=== PATIENT | female | born 1960 | race Caucasian/White ===

== ENCOUNTER 2024-11-21 23:59 | Inpatient (IN) | payer OTHER, SELFPAY ==
[2024-11-21 16:54] VITALS: BP 114/65
[2024-11-21 17:27] LABS: Urine Albumin Trace (Neg - Trace); Urine Bilirubin Negative (Negative); Urine Character Clear (Clear); Urine Color Yellow; Urine Glucose 3+ (Negative); Urine Ketone Negative (Negative); Urine Leukocyte 1+ (Negative); Urine Nitrite Negative (Negative); Urine Occult Blood 3+ (Negative); Urine Specific Gravity 1.015 (<1.030); Urine Urobilinogen Negative (Neg - 1+)
[2024-11-21 17:30] LABS: % Basophils 0.5 % (0-2); % Eosinophils 0.2 % (0-6); % Immature Granulocytes 0.2 % (0-0.5); % Lymphocytes 29.7 % (20.5-51.1); % Monocytes 7.5 % (1.7-9.3); % Neutrophils 61.9 % (42.2-75.2); Absolute Basophils 0.1 10^3/uL (0-0.2); Absolute Lymphocytes 3.9 10^3/uL (1.2-3.4); Absolute Neutrophils 8.1 10^3/uL (1.4-6.5); Hemoglobin 12.2 g/dL (12.0-16.0); Mean Corpuscular Hgb 29.4 pg (27.0-31.0); Mean Corpuscular Volume 89.2 fL (81.0-99.0); Mean Platelet Volume 9.4 fL (7.4-10.4); Nucleated Red Blood Cells % 0 %; Platelet Count 298 10^3/uL (130-400); Red Blood Cell Count 4.15 10^6/uL (4.20-5.40)
[2024-11-21 17:45] LABS: ALT (SGPT) 25 U/L (0-35); AST (SGOT) 22 U/L (14-36); Albumin 4.3 g/dl (3.5-5.0); Alkaline Phosphatase 66 U/L (38-126); Blood Urea Nitrogen 31 mg/dl (7-17); Calcium 9.4 mg/dl (8.4-10.2); Carbon Dioxide 23 mmol/L (22-30); Chloride 104 mmol/L (98-107); Glucose 122 mg/dl (70-99); Potassium 4.5 mmol/L (3.5-5.1); Sodium 136 mmol/L (135-145); Total Bilirubin 0.6 mg/dl (0.2-1.3); Total Protein 7.2 g/dl (6.3-8.2); eGFR 39.16
[2024-11-21 17:46] LABS: Lipase 226 U/L (23-300)
--- NOTE | 2024-11-21 19:35 | ED.GENMED ---
History of Present Illness
General
Chief Complaint: Abdominal Pain
Source: patient
Exam Limitations: none
Time Seen by Provider: 11/21/24 19:23
History of Present Illness
History of Present Illness:
64-year-old otherwise healthy female presents with gradually worsening right lower abdominal pain since yesterday. No associated nausea or vomiting. She did have 1 episode of diarrhea yesterday but denies any blood in the stool. She has a history
of colitis. She denies a fever. No prior abdominal surgical history. No urinary symptoms. The pain is sharp in nature constant.
Phy Exam
Physical Exam
Physical Exam:
General: Well-appearing female no acute respiratory distress
HEENT: Normocephalic atraumatic heart: Regular rate and rhythm no murmurs
Lungs: Clear no wheeze abdomen soft tender to the right lower quadrant no guarding rebound normal bowel sounds nondistended
Extremities: No cyanosis or edema
Skin: Warm no rash
Course
Orders/Labs/Results
Orders:
Orders
11/21/24 17:16
Complete Blood Count/With Diff Urgent
Comprehensive Metabolic Panel Urgent
Lipase Urgent
Urinalysis Reflex To Culture Urgent
Date Specimen was Collected: 11/21/24
Time Specimen was Collected: 16:57
Urine Microscopic Reflex Cult Urgent
Urine Culture Urgent
ADRIANA Source: U
Specimen Description:
Date Specimen was Collected: 11/21/24
Time Specimen was Collected: 16:57
11/21/24 19:34
CT Abd/pelvis W Iv Cont Urgent
Comment:
Reason For Exam: rlq pain
11/21/24 23:10
Zosyn 3.375 grams IVPB NOW Piperacillin/Tazo 3.375 Gram [Zosyn] 3.375 gram in 50 ml IV NOW
Abnormal Lab Results
11/21/24 11/21/24
17:16 21:01
WBC 13.0 H 10^3/uL
(4.8-10.8)
RBC 4.15 L 10^6/uL
(4.20-5.40)
Absolute Neuts (auto) 8.1 H 10^3/uL
(1.4-6.5)
Absolute Lymphs (auto) 3.9 H 10^3/uL
(1.2-3.4)
Absolute Monos (auto) 1.0 H 10^3/uL
(0.1-0.6)
BUN 31 H mg/dl
(7-17)
Creatinine 1.5 H mg/dL
(0.6-1.0)
Glucose 122 H mg/dl
(70-99)
Ur Occult Blood Reflex 3+ A
(Negative)
Leukocyte Esterase Rfl 1+ A
(Negative)
Urine RBC 3-6 A /HPF
(0-2)
Urine Glucose 3+ A
(Negative)
POC Glucose 167 H mg/dl
(70-99)
11/21/24 17:16
11/21/24 17:16
Vital Signs
Initial and Last Documented VS:
Initial Vital Signs
Temp Pulse Resp BP Pulse Ox
100.1 F 77 18 114/65 98
11/21/24 16:54 11/21/24 16:54 11/21/24 16:54 11/21/24 16:54 11/21/24 16:54
Last Documented Vital Signs
Temp Pulse Resp BP Pulse Ox
99.3 F 76 20 118/66 95
11/21/24 20:00 11/21/24 22:15 11/21/24 22:15 11/21/24 22:00 11/21/24 22:15
MDM/Problems Addressed
Differential Diagnosis Includes:
Right lower abdominal pain. Consider appendicitis risk constipation versus renal colic versus colitis.
Labs reviewed slight leukocytosis with a white count of 13,000.
Offered pain medicine however she declined. CT pending
*Critical Care Note
Total Time (30-74mins, 75-104mins- exclusive of procedures): Not Applicable
Update Note
Update Note:
CT demonstrates acute appendicitis without abscess or signs of perforation. Patient still appearing comfortable still declining pain meds. Relayed this information to the patient. Also discussed with general surgery. Will admit to house doctor.
Zosyn ordered.
ED Attending Note
-
Portions of this chart may have been created with voice recognition software.� Occasional wrong word or��sound alike� substitutions may have occurred due to the inherent limitations of voice recognition software.
Discharge Plan
Departure
Patient Disposition: Admit
Date of Disposition: 11/21/24
Time of Disposition: 23:11
Admit to: Med/Surg
Presentation/result/management discussed w/ accepting MD/DO: Shree
Discharge Problem:
Acute appendicitis
Referrals:
Chong Pratt MD [Family Provider] -
Interventions
Interventions:
*Risk Screen - Suicide Last Done: 11/21/24 16:54
*General Assessment Last Done: 11/21/24 16:54
*Neglect/Abuse Screening Last Done: 11/21/24 16:54
GI-Fzheod-Xzdzqpfjjn Assessment Last Done: 11/21/24 20:16
Discharge Date and Time
Print Language: TURKMEN
[2024-11-21 20:00] VITALS: BP 113/60
[2024-11-21 21:02] VITALS: BP 103/55
[2024-11-21 21:04] LABS: Glucose - Point of Care 167 mg/dl (70-99)
[2024-11-21 22:00] VITALS: BP 118/66
[2024-11-21 23:00] VITALS: BP 115/66
[2024-11-22] MEDS: ZOSYN 50 IV ×5 (00:07→23:02)
--- NOTE | 2024-11-22 00:19 | HPS.HSE ---
Addendum entered and electronically signed by Lanre Swann MD 11/22/24 08:57:
I saw and examined the patient.
The Paper Stripper's note was reviewed and I agree with the note.
Comment: Pt feels better this am. Endorses RLQ pain. On exam, ttp to RLQ and + Rovsing's. Labs today pending. She takes plavix. We discussed the bleeding risk with surgery given plavix on board. Lower risk option is non-op mgmt. Rec IV abx, trend
labs, serial abd exams. Hold plavix. SCDs.
Original Note:
Family Physician
-
Family Physician: Chong Pratt
Chief Complaint
-
'Abdomen pain'
History of Present Illness
64 y/o Angolan speaking patient with PMH of NIDDM, HTN, Covid was on Bipap at that time (2020), placed on Plavix due to 'thick blood', High Cholesterol, presents to ER with the c/o abdomen pain started yesterday after she had some heavy meal. States
she had similar pain two years ago also 2 months ago and didn't get treatment. Reports its a steady dull pain, not radiating, at the RLQ which is worsened with movement or palpation. Reports one time loose brown non bloody stool, Denies N/V,
voiding without difficulty, + Flatus. Denies Chest pain or Shortness of breath. Denies any abdomen surgery.
Interpreted by son-patient preference
Medical History
Past Medical History
Past Medical History: Reports HTN, Hypercholesterolemia, NIDDM and Other
Additional Past Medical History:
Pyelonephritis
Past Surgical History: Reports Other (eye surgery )
Social History
Tobacco: Non-smoker
Alcohol: None
Living: With Family
Family History
Family History: Not pertinent
Allergies / Home Medications
Allergies reflects when Allergies were last updated in [employer].
Home Medications with original date entered in [employer]
Allergy/Medication List:
Allergies
Allergy/AdvReac Type Severity Reaction Status Date / Time
No Known Allergies Allergy Unverified 11/21/24 16:57
Home Medications
atorvastatin 20 mg tablet 20 mg PO HS 11/21/24
bisoprolol fumarate 5 mg tablet 2.5 mg PO DAILY 11/21/24
clopidogrel 75 mg tablet 75 mg PO HS 11/21/24
empagliflozin 25 mg tablet (Jardiance) 25 mg PO DAILY 11/21/24
icosapent ethyl 1 gram capsule 2 g PO BID 11/21/24
insulin glargine U-300 conc 300 unit/mL (3 mL) subcutaneous pen (Toujeo Max U-300 SoloStar) 38 unit SC HS 11/21/24
insulin glulisine U-100 100 unit/mL subcutaneous pen (Apidra SoloStar U-100 Insulin) 12 - 14 sliding scale dose SC AC 11/21/24
losartan 50 mg tablet 50 mg PO DAILYPRN PRN high BP 11/21/24
Review of Systems
-
History Source: Patient and Family
A 12 point ROS was completed and negative except as noted: Yes
Constitutional: Reports No Symptoms
EENT: Reports No Symptoms
Respiratory: Reports No Symptoms
Cardiac: Reports No Symptoms
Abdomen/GI: Reports Abdominal Pain (RLQ)
: Reports No Symptoms
Musculoskeletal: Reports No Symptoms
Skin: Reports No Symptoms
Neurological: Reports No Symptoms
Endocrine: Reports No Symptoms
Hematologic/Lymphatic: Reports No Symptoms
Psych: Reports No Symptoms
Physical Exam
Vital Signs
Vital Signs
Temp Pulse Resp BP Pulse Ox
99.3 F 76 20 118/66 95
11/21/24 20:00 11/21/24 22:15 11/21/24 22:15 11/21/24 22:00 11/21/24 22:15
Physical Exam
General: Well Developed, Well Nourished, No Apparent Distress, Conversant and Morbidly Obese
HEENT: NormoCephalic, Moist mucous membranes and Atraumatic
Respiratory: Clear and Non Labored Respirations
Cardiac: S1/S2 and Regular Rhythm
Breast: Deferred by me
GI: Soft, Normal Bowel Sounds, Tender (RLQ. did not want me to palpate at this time. ) and Distended; No Organomegaly
Rectal: Deferred by Provider
Genito-urinary: Clear Urine and No costovertebral tender
Musculoskeletal: No Clubbing, No Cyanosis and No Edema
Skin: Warm and Dry
Neuro: Awake, AO x 3 and Nonfocal/grossly intact
Hematologic/Lymphatic: No Lymphadenopathy
Psych: Calm and Intact Judgment/Insight
Laboratory Results
-
11/21/24 17:16
11/21/24 17:16
Laboratory Results
Total Bilirubin 0.6 mg/dl (0.2-1.3) 11/21/24 17:16
AST 22 U/L (14-36) 11/21/24 17:16
ALT 25 U/L (0-35) 11/21/24 17:16
Alkaline Phosphatase 66 U/L (38-126) 11/21/24 17:16
Lipase 226 U/L (23-300) 11/21/24 17:16
Data Reviewed
-
CT Scan: Report Reviewed by me
Lab Data: Labs Reviewed by me
Impression/Plan
-
64 y/o patient with abdomen pain
# Abdomen pain likely due to Acute Appendicitis
CT abd/pelvis: CT findings highly suggestive of appendicitis. No evidence for abscess.
WBC 13.0
Febrile 100.1
Continue IV Zosyn
ZENIA-Continue IVF
NPO
Refusing pain medicine at present
Admit to Dr. Swann
Med Surg
# Essential HTN
on Losartan will hold for now
IV hydralazine if needed
Monitor BP HR
# NIDDM
will hold home medicine
AccuCheck Q6H
Insulin sliding scale
NPO
# Hypercholesteremia
Continue Atorvastatin
On Plavix 75 mg PO, Last dose was taken on 11/20/24
Full Code
SCD's.
[2024-11-22 00:48] VITALS: BMI 31.8
[2024-11-22 01:15] VITALS: BP 115/66
[2024-11-22 01:22] VITALS: BP 118/63; BMI 31.0
[2024-11-22 01:37] LABS: Glucose - Point of Care 170 mg/dl (70-99)
[2024-11-22] MEDS: NSS 1000 IV ×2 (01:44→17:38)
--- NOTE | 2024-11-22 01:55 | PTCARENOTE ---
Call made to Pharmacy for insulin pen.
[2024-11-22 02:43] VITALS: BMI 27.7
[2024-11-22 05:38] LABS: Glucose - Point of Care 156 mg/dl (70-99)
[2024-11-22] MEDS: NOVOLOG FLEXPEN-LOW RESISTANCE 300 UNITS SC (06:11)
[2024-11-22 07:00] VITALS: BP 117/60
[2024-11-22 09:11] LABS: Hematocrit 35.6 % (37.0-47.0); Hemoglobin 11.6 g/dL (12.0-16.0); Mean Corp Hgb Conc. 32.6 g/dL (33.0-37.0); Mean Corpuscular Hgb 28.9 pg (27.0-31.0); Mean Corpuscular Volume 88.8 fL (81.0-99.0); Mean Platelet Volume 9.6 fL (7.4-10.4); Platelet Count 260 10^3/uL (130-400); Red Blood Cell Count 4.01 10^6/uL (4.20-5.40); White Blood Cell Count 9.6 10^3/uL (4.8-10.8)
[2024-11-22 09:21] LABS: INR 0.94; PT 12.9 Sec (11.4-14.6)
[2024-11-22 09:33] LABS: Blood Urea Nitrogen 27 mg/dl (7-17); Calcium 9.2 mg/dl (8.4-10.2); Carbon Dioxide 21 mmol/L (22-30); Chloride 104 mmol/L (98-107); Estimated Creatinine Clearance 35 ml/min; Glucose 163 mg/dl (70-99); Sodium 139 mmol/L (135-145); eGFR 39.16
[2024-11-22 09:40] LABS: Potassium 4.5 mmol/L (3.5-5.1)
--- NOTE | 2024-11-22 10:21 | CM ---
Reviewed the chart notes and spoke with the patient and son at the bedside. The son translated. Patient preference. Patient being management non-operatively for an appendicitis due to patient being on Plavix. The patient resides with her son in
a two story home with three steps to enter. The patient reports no DME/VN/SNF in the past. The patient's pharmacy of choice is the [facility]. CM continues to be available to patient/family and is monitoring medical plan for needs at
discharge.
Plan: Discharge plans will depend on the patient's progress.
[2024-11-22 11:46] LABS: Glycohemoglobin (HgbA1c) 8.4 % (4.0-5.6)
[2024-11-22 12:08] LABS: Glucose - Point of Care 152 mg/dl (70-99)
[2024-11-22] MEDS: NOVOLOG FLEXPEN-LOW RESISTANCE 1 UNITS SC ×2 (12:55→17:43)
[2024-11-22 15:36] VITALS: BP 128/57
[2024-11-22 17:37] LABS: Glucose - Point of Care 161 mg/dl (70-99)
[2024-11-22] MEDS: LOVENOX 40 MG SC (17:38)
[2024-11-22 21:41] LABS: Glucose - Point of Care 114 mg/dl (70-99)
[2024-11-22 23:45] VITALS: BP 109/56
[2024-11-23] MEDS: ZOSYN 50 IV ×4 (05:38→23:40)
[2024-11-23] MEDS: NSS IV (06:54)
[2024-11-23 07:45] VITALS: BP 123/73
[2024-11-23 09:06] LABS: Glucose - Point of Care 115 mg/dl (70-99)
[2024-11-23] MEDS: NOVOLOG FLEXPEN-LOW RESISTANCE SC ×3 (09:10→18:45)
--- NOTE | 2024-11-23 11:09 | W.PN.GS2 ---
Today's Communication / Plan
-
IV abx
Assessment / Plan
-
64F with acute uncomplicated appendicitis in setting of plavix use
AFVSS, leukocytosis normalized, remains moderately tender on exam
Plan:
Cont non-op mgmt
Adv to FLD
Cont IV abx
Serial exams
SCDs
Ambulate
Subjective Data
-
Date of Service: November 23, 2024
AFVSS, no complaints this am
Objective Data
-
Intake and Output
11/22/24 11/23/24 11/24/24
06:59 06:59 06:59
Intake Total 50 / 50 3185 / 3185
Balance 50 / 50 3185 / 3185
Intake:
Oral fluids 1260 / 1260
IV fluids (Total) 1725 / 1725
IV piggybacks 50 / 50 200 / 200
Zosyn 50 / 50
Other:
Number of unmeasured voidings 2
Number of approximated MODERATE 2
amounts of urine
Number of approximated LARGE 1
amounts of urine
Vital Signs
Temp Pulse Resp BP Pulse Ox
98.0 F 78 16 123/73 97
11/23/24 07:45 11/23/24 07:45 11/23/24 07:45 11/23/24 07:45 11/23/24 07:45
Lab Results
11/22/24 08:46
11/22/24 08:46
Calcium 9.2 mg/dl (8.4-10.2) 11/22/24 08:46
Total Bilirubin 0.6 mg/dl (0.2-1.3) 11/21/24 17:16
AST 22 U/L (14-36) 11/21/24 17:16
ALT 25 U/L (0-35) 11/21/24 17:16
Alkaline Phosphatase 66 U/L (38-126) 11/21/24 17:16
Total Protein 7.2 g/dl (6.3-8.2) 11/21/24 17:16
Albumin 4.3 g/dl (3.5-5.0) 11/21/24 17:16
Physical Exam
-
Gen: NAD
Abd: soft, obese, moderate ttp to RLQ
[2024-11-23 14:27] LABS: Glucose - Point of Care 103 mg/dl (70-99)
[2024-11-23 15:15] VITALS: BP 150/77
[2024-11-23 18:18] LABS: Glucose - Point of Care 117 mg/dl (70-99)
[2024-11-23] MEDS: LOVENOX 40 MG SC (18:46)
[2024-11-23 22:19] LABS: Glucose - Point of Care 137 mg/dl (70-99)
[2024-11-23 23:50] VITALS: BP 133/63
[2024-11-24] MEDS: ZOSYN 50 IV ×4 (05:29→23:08)
[2024-11-24 07:20] VITALS: BP 131/63
[2024-11-24 08:29] LABS: Glucose - Point of Care 113 mg/dl (70-99)
[2024-11-24] MEDS: NOVOLOG FLEXPEN-LOW RESISTANCE SC ×2 (08:41→12:56)
--- NOTE | 2024-11-24 09:44 | W.PN.GS2 ---
Today's Communication / Plan
-
LRD
IV abx
Assessment / Plan
-
64F with acute uncomplicated appendicitis in setting of plavix use
AFVSS, leukocytosis normalized, rlq ttp is improving
Plan:
Cont non-op mgmt
Adv to LRD
Cont IV abx additional 24 hrs
Serial exams
SCDs
Ambulate
Tentative plan for DC tomorrow with 5 days augmentin 875mg. I advised her to f/u in my office to discuss interval appendectomy. Her son tells me she may not need to be on plavix and he will look into stopping that medication.
Subjective Data
-
Date of Service: November 24, 2024
Continues to improve. No complaints. Pain improved. Sylvia fld
Objective Data
-
Intake and Output
11/23/24 11/24/24 11/25/24
06:59 06:59 06:59
Intake Total 3185 / 3185 1350 / 1350
Balance 3185 / 3185 1350 / 1350
Intake:
Oral fluids 1260 / 1260 1200 / 1200
IV fluids (Total) 1725 / 1725 50 / 50
IV piggybacks 200 / 200 100 / 100
Other:
Number of approximated MODERATE 2 1
amounts of urine
Number of approximated LARGE 1 2
amounts of urine
Vital Signs
Temp Pulse Resp BP Pulse Ox
97.9 F 73 14 131/63 95
11/24/24 07:20 11/24/24 07:20 11/24/24 07:20 11/24/24 07:20 11/24/24 07:20
Lab Results
11/22/24 08:46
11/22/24 08:46
Calcium 9.2 mg/dl (8.4-10.2) 11/22/24 08:46
Total Bilirubin 0.6 mg/dl (0.2-1.3) 11/21/24 17:16
AST 22 U/L (14-36) 11/21/24 17:16
ALT 25 U/L (0-35) 11/21/24 17:16
Alkaline Phosphatase 66 U/L (38-126) 11/21/24 17:16
Total Protein 7.2 g/dl (6.3-8.2) 11/21/24 17:16
Albumin 4.3 g/dl (3.5-5.0) 11/21/24 17:16
Physical Exam
-
Gen: NAd
Abd: minimal ttp to rlq
--- NOTE | 2024-11-24 10:12 | CM ---
Reviewed the chart notes. Plan is for possible discharge tomorrow on oral antibiotics. CM continues to be available to patient/family and is monitoring medical plan for needs at discharge.
Plan: Discharge to home when medically stable. No needs anticipated.
[2024-11-24 15:20] VITALS: BP 111/60
[2024-11-24 17:19] LABS: Glucose - Point of Care 196 mg/dl (70-99)
[2024-11-24] MEDS: NOVOLOG FLEXPEN-LOW RESISTANCE 1 UNITS SC (17:37)
[2024-11-24] MEDS: LOVENOX 40 MG SC (17:40)
[2024-11-24 23:08] LABS: Glucose - Point of Care 179 mg/dl (70-99)
[2024-11-24 23:25] VITALS: BP 131/64
[2024-11-25] VITALS (8 sets, daily range): BP systolic 108–144; BP diastolic 53–66
[2024-11-25] MEDS: ZOSYN 50 IV ×2 (05:34→11:59)
[2024-11-25 08:49] LABS: Glucose - Point of Care 183 mg/dl (70-99)
--- NOTE | 2024-11-25 09:08 | W.PN.GS2 ---
Today's Communication / Plan
-
OR today, possible discharge later today depending on operative findings and clinical course.
Assessment / Plan
-
64F with acute uncomplicated appendicitis in setting of plavix use
AFVSS, leukocytosis normalized, rlq ttp is improving
Plan:
The patient has been here now 5 days, her Plavix is washed out and she is interested in surgery today.
Will plan for a laparoscopic appendectomy.
Risks/Benefits/Alternatives, expected postoperative course and possible complications (bleeding, infection, injury to surrounding structures, acute/chronic pain) discussed at length. Patient wishes to proceed with surgery. All questions answered.
Consent obtained.
I spent 45 minutes in total for the care of this patient today including direct patient care and counseling, reviewing labs, imaging, coordination of care, as well as documentation.
Time Spent
Total Time Spent with Patient (in minutes): 55
Subjective Data
-
Date of Service: November 25, 2024
Interval Events:
No acute events overnight. Slept well. Pain Controlled. Denies Nausea/Vomiting, +bowel function. Tolerating diet.
Objective Data
-
Intake and Output
11/24/24 11/25/24 11/26/24
06:59 06:59 06:59
Intake Total 1350 / 1350 1300 / 1300
Balance 1350 / 1350 1300 / 1300
Intake:
Oral fluids 1200 / 1200 1200 / 1200
IV fluids (Total) 50 / 50
IV piggybacks 100 / 100 100 / 100
Other:
Number of approximated MODERATE 1 2
amounts of urine
Number of approximated LARGE 2 2
amounts of urine
Vital Signs
Temp Pulse Resp BP Pulse Ox
97.9 F 74 20 118/66 95
11/25/24 08:03 11/25/24 08:03 11/25/24 08:03 11/25/24 08:03 11/25/24 08:03
Lab Results
11/22/24 08:46
11/22/24 08:46
Calcium 9.2 mg/dl (8.4-10.2) 11/22/24 08:46
Total Bilirubin 0.6 mg/dl (0.2-1.3) 11/21/24 17:16
AST 22 U/L (14-36) 11/21/24 17:16
ALT 25 U/L (0-35) 11/21/24 17:16
Alkaline Phosphatase 66 U/L (38-126) 11/21/24 17:16
Total Protein 7.2 g/dl (6.3-8.2) 11/21/24 17:16
Albumin 4.3 g/dl (3.5-5.0) 11/21/24 17:16
Physical Exam
-
GENERAL/NEURO: Awake, Alert, no distress
CHEST: Unlabored breathing on RA
ABDOMEN: Soft, still mildly tender.
--- NOTE | 2024-11-25 09:10 | W.SUR.PREOP ---
Pre-Operative Surgical Note
-
I have examined this patient prior to the performance of the scheduled procedure.
The patient's condition is unchanged from the time of the current History and
Physical and the patient is able to undergo the scheduled procedure.
[2024-11-25] MEDS: NOVOLOG FLEXPEN-LOW RESISTANCE SC (09:40)
--- NOTE | 2024-11-25 11:06 | W.IMMPOSTOP ---
Surgical Immed Post Op Note
-
Primary Surgeon: Ty Beauchamp MD
Assisting Surgeon: None
Pre-op Diagnosis: Acute appendicitis
Post-op Diagnosis: Same
Procedure Performed: Laparoscopic appendectomy
Anesthesia Type: General
Specimen / Cultures: Appendix
Estimated Blood Loss: 1 cc
Complications: None
Operative Findings: 3 port appendectomy. Inflamed, nonperforated appendicitis. Base ligated with 0 PDS Endoloops x 2.
POST OP PLAN:
Will discharge home today
--- NOTE | 2024-11-25 11:06 | OR.RPT ---
Operative Report
Operative Report
Patient Name: Faviola Sinclair
: 1960
Date of Operation: 11/25/2024
Preoperative Diagnosis: Acute Appendicitis
Postoperative Diagnosis: Same
Procedure(s):
Laparoscopic Appendectomy
Surgeon(s):
Dr. Beauchamp
Automotive Worker Foreman(s):
MENDOZA Marks
Anesthesia: General
Estimated Blood Loss: 1 cc
Urine Output: None
Drains/Lines/Implants: None
Specimens:
1. Appendix
HPI/Surgical Indications:
This is a 64-year-old female who presents with a 1 day history of abdominal pain. Exam, labs and imaging are consistent with acute appendicitis. As she was on Plavix, she was admitted for initially nonoperative management and Plavix washout. After
4 days though her pain improved as she was interested in surgery so risks/Benefits/Alternatives were discussed at length, and the patient agreed to proceed with surgery.
Operative Findings: 3 port appendectomy. Inflamed, nonperforated appendicitis. Base ligated with 0 PDS Endoloops x 2.
Procedure Description:
The patient was placed in the supine position, with the left arm tucked, and general anesthesia was induced. The abdomen was prepared and draped in a sterile fashion so as to expose the entire abdomen. A surgical time out was taken. Abdominal access
was obtained with a left upper quadrant Veress entry which required a single pass. We then placed a left lower quadrant 5 mm Optiview trocar. After confirming no injury on entrance, two additional 5mm ports were placed in the suprapubic area just
off midline and just to the left of the umbilicus. The patient was placed in Trendelenberg with the right slightly up . The appendix was identified and a window was created in the mesoappendix. The appendix was suppurative and inflamed but not
perforated, there was a bulbous portion in the midportion of the appendiceal mesentery consistent with a contained abscess. The capsule was not violated, and there was no spillage of pus. Using a laparoscopic bipolar energy device, the meso
appendix was divided. The base of the appendix appeared uninvolved and was ligated/divided using two 0-PDS Endoloops and the energy device. The appendix was placed in a specimen retrieval bag. Hemostasis was confirmed and the ports were removed
under visualization. The specimen was passed off the field. The skin for all three ports was closed with interrupted monocryls and covered with dermabond. The patient was awoken from anesthesia in good condition and transported to the recovery area.
I was the attending physician and performed the procedure with assistance from the PAINT STOCK CLERK above. I was present for all portions of the case excluding skin closure.
Ty Beauchamp MD
[2024-11-25 11:30] LABS: Glucose - Point of Care 181 mg/dl (70-99)
--- NOTE | 2024-11-25 11:46 | CM ---
Pt is postop . entered dc order.
Spoke with son he is visiting in room.
Son said he can drive his mom home.
Pt will need to tolerate diet first.
PLAn Home no needs
[2024-11-25] MEDS: NOVOLOG FLEXPEN-LOW RESISTANCE 1 UNITS SC (12:00)
--- NOTE | 2024-11-25 12:02 | PTCARENOTE ---
Pt back from OR s/p lap appy, lap sites c/d/i w/ Dermabond intact. VSS. 96% on 2L, pt drowsy, c/o feeling dizzy. Son at bedside. Instructed to let pt rest, will reassess VS and will order lunch when pt is feeling up to it, ok for discharge after pt
tolerates eating.
--- NOTE | 2024-11-25 13:47 | PTCARENOTE ---
Pt tolerated lunch, VSS. Language line used to give discharge instructions to patient, also reviewed w/ son. All questions answered. Denies pain. Pt awaiting ride home.
== END 2024-11-25 14:33 | disposition home or self-care (01) | DRG 398 ==
LOC: 2 SOUTH 23:59
PROVIDERS: Nurse Practitioner Gerontology; Surgery; ADMITTING PHYSICIAN Surgery; EMERGENCY PHYSICIAN Emergency Medicine; FAMILY PHYSICIAN Internal Medicine
PROC: 0DTJ4ZZ Resection of Appendix, Percutaneous Endoscopic Approach (ICD-10-PCS; 2024-11-25)
DX: K35.80 Unspecified acute appendicitis (principal); N17.9 Acute kidney failure, unspecified; Z79.02 Long term (current) use of antithrombotics/antiplatelets; E11.9 Type 2 diabetes mellitus without complications; Z79.84 Long term (current) use of oral hypoglycemic drugs; I10 Essential (primary) hypertension; E78.00 Pure hypercholesterolemia, unspecified
CPT/HCPCS: 88304; 74177; 80048; 80053; 81003; 81015; 82962; 83036; 83690; 85025; 85027; 85610; 87086; 96365; 99284; C1776; Q9967